=== PATIENT | female | born 1985 | race African-American/Black ===

== ENCOUNTER 2025-03-13 10:44 | Emergency (ER) | payer MEDICAID ==
[~2025-03-13] VITALS: Ht 175.3 cm; Wt 75.0 kg
[2025-03-13 10:56] VITALS: O2SAT 100
[2025-03-13 11:24] VITALS: BP 129/87; PULSE 71; RESP 13; TEMP 36.9; O2SAT 100
[2025-03-13 11:37] LABS: PLATELET 291 x1000/uL (130-400); RED BLOOD CELL COUNT 4.75 mill/uL (4.2-5.4); RED CELL DISTRIBUTION WIDTH 14.8 % (11.6-14.6)
[2025-03-13 11:51] LABS: CREATININE 0.7 mg/dL (0.6-1.0); UREA NITROGEN BLOOD 7 mg/dL (9-23)
[2025-03-13 12:12] LABS: B-HCG QUANTITATIVE 5960 mIU/mL (<6)
== END 2025-03-13 13:04 | disposition home or self-care (01) ==
LOC: ER 10:44
DX: O26.891 Other specified pregnancy related conditions, first trimester (principal); R10.32 Left lower quadrant pain; E16.2 Hypoglycemia, unspecified; Z3A.01 Less than 8 weeks gestation of pregnancy
CPT/HCPCS: 36415; 76801; 80048; 81025; 84702; 85027; 86850; 86900; 99284